=== PATIENT | female | born 1930 | race Caucasian/White ===

== ENCOUNTER 2016-11-09 06:33 | Emergency (ER) | payer OTHER, MEDICARE ==
[~2016-11-09] VITALS: Ht 152.4 cm; Wt 68.0 kg
[~2016-11-09 06:33] MED LIST: AMBIEN 5 MG TABL5 M1 PO; ATIVAN0.5 MG PO; AUGMENTIN 500-1 EACH PO; BAYER CHEWABLE81 MG PO; CITALOPRAM HBR40 MG PO; CITRATE OF MAG300 ML PO; CLARITIN10 MG PO; COMBIVENT INH; DOK PLUS TABLE1 EACH PO; ESTRADIOL 1 MG T1 M1 PO; FUROSEMIDE 20 M20 MG PO; ISOSORBIDE MONO30 M1 PO; KLOR-CON 1010 MEQ PO; LEVOTHYROXIN0.075 MG PO; NORCO 10-325 T1 EACH PO; OXYBUTYNIN 5 MG5 M2 PO; PANTOPRAZOLE SO40 M1 PO; PRINIVIL20 MG PO; PROAIR HFA8.5 GM INH; SIMVASTATIN40 MG PO; TRAVATAN Z2.5 ML OPHTHALMIC; TYLENOL325 MG PO; VITAMIN B-12500 MCG PO
[2016-11-09] MEDS ORDERED: CLARITIN10 MG PO (06:55)
[2016-11-09] MEDS ORDERED: B12INJ PO (06:56)
[2016-11-09] MEDS ORDERED: ADVAIR HFA 45MC1 AER INH (06:57)
[2016-11-09] MEDS ORDERED: CARTEOLOL HCL OPHTHALMIC (06:58)
[2016-11-09] MEDS ORDERED: COMBIVENT RESPIM4 GM IH (06:59)
[2016-11-09] MEDS ORDERED: MELATONIN1 MG PO (07:00)
[2016-11-09] MEDS ORDERED: TRUSOPT5 ML OPHTHALMIC (07:00)
[2016-11-09] MEDS ORDERED: PROAIR HFA8.5 GM INH (07:01)
[2016-11-09] MEDS ORDERED: NORCO 10-325 T1 EACH PO (07:02)
== END 2016-11-09 10:31 | disposition home or self-care (01) ==
LOC: ER 06:33
DX: S09.90XA Unspecified injury of head, initial encounter (principal); I12.9 Hypertensive chronic kidney disease with stage 1 through stage 4 chronic kidney disease, or unspecified chronic kidney disease; N18.9 Chronic kidney disease, unspecified; E78.5 Hyperlipidemia, unspecified; E03.9 Hypothyroidism, unspecified; J45.909 Unspecified asthma, uncomplicated; M19.90 Unspecified osteoarthritis, unspecified site; J44.9 Chronic obstructive pulmonary disease, unspecified; F32.9 Major depressive disorder, single episode, unspecified; Z90.710 Acquired absence of both cervix and uterus; Z91.81 History of falling; Z88.5 Allergy status to narcotic agent; W18.09XA Striking against other object with subsequent fall, initial encounter; Y93.89 Activity, other specified; Y92.89 Other specified places as the place of occurrence of the external cause; Y99.8 Other external cause status

== ENCOUNTER 2016-11-22 13:39 | Inpatient (IN) | payer OTHER, MEDICARE | END 2016-11-26 16:20 | DRG 682 | LOC: ER 13:39 → EROBS 15:49 → 3N 16:09 | DX: N17.9 Acute kidney failure, unspecified (principal); G93.40 Encephalopathy, unspecified; J44.9 Chronic obstructive pulmonary disease, unspecified; E78.5 Hyperlipidemia, unspecified; E03.9 Hypothyroidism, unspecified; H40.9 Unspecified glaucoma; N18.9 Chronic kidney disease, unspecified; M19.90 Unspecified osteoarthritis, unspecified site; F32.9 Major depressive disorder, single episode, unspecified; I12.9 Hypertensive chronic kidney disease with stage 1 through stage 4 chronic kidney disease, or unspecified chronic kidney disease; D64.9 Anemia, unspecified; G30.9 Alzheimer's disease, unspecified; F02.80 Dementia in other diseases classified elsewhere, unspecified severity, without behavioral disturbance, psychotic disturbance, mood disturbance, and anxiety; K21.9 Gastro-esophageal reflux disease without esophagitis; Z90.710 Acquired absence of both cervix and uterus; Z95.0 Presence of cardiac pacemaker; Z79.899 Other long term (current) drug therapy; Z88.6 Allergy status to analgesic agent; Z88.8 Allergy status to other drugs, medicaments and biological substances; Z91.040 Latex allergy status ==

== ENCOUNTER 2017-04-24 19:46 | Inpatient (IN) | payer OTHER, MEDICARE ==
[~2017-04-24] VITALS: Ht 157.5 cm; Wt 69.3 kg
--- NOTE | ~2017-04-24 | EKG ---
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 : 1930 Requested By: Bong Roman Order Number: [id number] MD: Olayinka Novoa Measurements Intervals [place] Rate: 120 P: -12 WI: 141 QRS: -30 QRSD: 83 T: 147 QT: 323 QTc: 457 Interpretive Statements Sinus tachycardia Inferior infarct, old Anterior infarct, old Lateral leads are also involved Compared to ECG 11/22/2016 14:06:08 Atrial-paced complex(es) or rhythm no longer present Ventricular-paced complex(es) or rhythm no longer present Myocardial infarct finding still present Electronically Signed On 04-24-2017 23:08:50 SOFTWARE ENGINEER BACKEND by Olayinka Novoa [email or web address] <ELECTRONICALLY SIGNED> By: Olayinka Novoa MD 04/24/17 2308 [id number] 46 Olayinka Novoa MD /EPI
--- NOTE | ~2017-04-24 | H ---
[facility] [place] [address] HISTORY AND PHYSICAL Name: NATY THOMASON Room #: 364-P ADM IN M.R.#: [id number] Admission: 04/24/17 Attend Phys: James Sanchez MD Discharge: Date of : 29 Report #: [id number] THIS REPORT FOR: //name// CC: James Sanchez HISTORY OF PRESENT ILLNESS: The patient is an 87-year-old female who was brought to the emergency room with increasing shortness of breath, coughing with yellow sputum production that has been going on for the last 3 days. Unfortunately, the patient's was admitted with the same symptoms 1 day before and he is on mechanical ventilation in the ICU. The patient indicated that she is not having any wheezing, she is not having any chest pain or shortness of breath. The patient is not complaining of any fever or chills. PAST MEDICAL HISTORY: Significant for chronic obstructive pulmonary disease, recurrent falls, dementia, hypertension, hyperlipidemia, hypothyroidism, glaucoma, osteoarthritis, chronic kidney disease, previous history of hysterectomy, bladder surgery, thyroid , depression, large hiatal hernia, sick sinus syndrome, status post pacemaker placement and had an ejection fraction in 2015, showing 55% to 60%. MEDICATIONS: Reviewed and reconciled. ALLERGIES: To CODEINE, LATEX, and OLANZAPINE. SOCIAL HISTORY: The patient denies any recent history of smoking, but she used to smoke when she was younger. No history of alcohol use or drug use. FAMILY HISTORY: Noncontributory. REVIEW OF SYSTEMS: Negative besides what was mentioned above. PHYSICAL EXAMINATION: VITAL SIGNS: On arrival to the hospital showed a temperature of 100.7, pulse 126, respirations 28, blood pressure 167/72, last blood pressure is 120/71. Oxygen saturation initially was 91% and now it is 96% on room air. HEAD AND NECK: Unremarkable. NECK: Supple. LUNGS: Clear to auscultation. CARDIAC: S1, S2. ABDOMEN: Benign. Bowel sounds were positive. EXTREMITIES: Without any edema. Chest x-ray showed large hiatal hernia and retrocardiac left lower lobe infiltration along with right basilar atelectasis. Influenza A and B was negative. CBC showed a white count of 14.8, hemoglobin 10.7, hematocrit 32.0, and platelet count 279. The patient's sodium was 138, potassium 3.8, chloride 102, bicarbonate 22, anion gap 14, BUN 29, creatinine 1.7, [place] [address] HISTORY AND PHYSICAL Name: NATY THOMASON Room #: 364-P [facility] IN [facility]#: [id number] Admission: 04/24/17 Attend Phys: James Sanchez MD Discharge: Date of : 29 Report #: [id number] Troponin less than 0.04. Lactic acid is 1.9. ABGs showed a pH of 7.3, pCO2 of 34, pO2 89 and this is on 6 liters of oxygen. BNP was 177. 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 ASSESSMENT AND PLAN: 1. Left lower lobe pneumonia. 2. Chronic obstructive pulmonary disease. 3. Dementia. 4. Hypertension. The patient will be admitted to the hospital with the above mentioned diagnoses. We will go ahead and resume the patient's medications. We will continue with the antibiotics and IV hydration. I will start physical therapy and occupational therapy. We will start the patient on Lovenox for deep venous thrombosis prophylaxis. I will continue to monitor the patient. <ELECTRONICALLY SIGNED> By: James Sanchez MD 04/27/17 [id number] [id number] James Sanchez MD /nt
[~2017-04-24 19:46] MED LIST changes: +ADVAIR HFA 45MC1 AER INH; +ARICEPT 5 MG TAB5 MG PO; +ASPIR 8181 MG PO; +B12INJ PO; +CARTEOLOL HCL OPHTHALMIC; +COMBIVENT RESPIM4 GM IH; +MELATONIN1 MG PO; +TRUSOPT5 ML OPHTHALMIC
[2017-04-24 19:48] VITALS: BP 167/72
[2017-04-24] MEDS ORDERED: ARICEPT 5 MG TAB5 MG PO (20:45)
[2017-04-24] MEDS ORDERED: AMLODIPINE BESY10 MG PO (20:50)
[2017-04-24] MEDS ORDERED: REQUIP0.5 MG PO (20:50)
[2017-04-24] MEDS ORDERED: LATANOPROST 0.2.5 ML OPHTHALMIC (20:52)
[2017-04-24] MEDS ORDERED: TRIAMCINOLONE A80 G2 TOP (20:53)
[2017-04-24] MEDS ORDERED: LASIX 20 MG TAB20 MG PO (20:53)
[2017-04-24] MEDS ORDERED: KLOR-CON 1010 MEQ PO (20:54)
[2017-04-24 21:02] LABS: ANION GAP 14 mmol/L (7-16); BUN 29 mg/dL (7-18); CALCIUM 8.8 mg/dL (8.5-10.1); CHLORIDE 102 mmol/L (98-107); CO2 22 mmol/L (21-32); CREATININE 1.7 mg/dL (0.6-1.0); GLUCOSE 145 mg/dL (74-106); HEMOGLOBIN 10.7 gm/dL (12.0-15.0); MCH 27.9 pg (26.0-34.0); MCHC 33.4 g/dL (28.0-37.0); MCV 83.6 fL (80.0-100.0); POTASSIUM 3.8 mmol/L (3.5-5.1); RBC 3.83 mil/uL (4.20-5.00); RDW 16.7 % (10.5-14.5); SODIUM 138 mmol/L (136-145); WBC 14.8 thou/uL (4.0-11.0)
[2017-04-24 21:11] LABS: TROPONIN-I < 0.04 ng/mL (<0.06)
[2017-04-24 21:41] LABS: HCO3 19.5 mmol/L (22.0-26.0); PO2 89.6 mmHg (80.0-100.0); pH 7.376 (7.360-7.450); sO2 96.8 % (92.0-98.0)
[2017-04-24 22:35] VITALS: BP 128/75
[2017-04-25 00:05] VITALS: BP 120/71
[2017-04-25 07:35] VITALS: BP 121/66
[2017-04-25 11:21] VITALS: BP 111/55
[2017-04-25 15:00] VITALS: BP 113/58
[2017-04-25 20:30] VITALS: BP 120/66
[2017-04-25 23:25] VITALS: BP 118/69
[2017-04-26 05:30] VITALS: BP 129/60
[2017-04-26 06:25] LABS: ABSOLUTE NEUTROPHILS 10.5 thou/uL (1.4-8.2); BASOPHILS 0.2 % (0.0-2.0); HEMATOCRIT 24.8 % (37.0-47.0); LYMPHOCYTES 9.7 % (24.0-44.0); MCH 27.7 pg (26.0-34.0); MCHC 32.9 g/dL (28.0-37.0); MCV 84.2 fL (80.0-100.0); MONOCYTES 6.4 % (1.0-8.0); PLATELET COUNT 216 thou/uL (150-400); POLYS 83.7 % (36.0-66.0); RBC 2.94 mil/uL (4.20-5.00); WBC 12.6 thou/uL (4.0-11.0)
[2017-04-26 06:30] LABS: CALCIUM 8.1 mg/dL (8.5-10.1); CREATININE 1.3 mg/dL (0.6-1.0); POTASSIUM 3.8 mmol/L (3.5-5.1)
[2017-04-26 06:41] LABS: HEMOGLOBIN 8.1 gm/dL (12.0-15.0)
[2017-04-26 08:00] VITALS: BP 137/70
[2017-04-26 13:00] VITALS: BP 131/56
[2017-04-26 16:27] VITALS: BP 129/62
[2017-04-26 19:36] VITALS: BP 130/75
[2017-04-27 03:33] VITALS: BP 137/65
[2017-04-27 06:22] LABS: HEMATOCRIT 26.5 % (37.0-47.0); HEMOGLOBIN 8.8 gm/dL (12.0-15.0); MCH 27.7 pg (26.0-34.0); MCV 84.1 fL (80.0-100.0); RBC 3.16 mil/uL (4.20-5.00); RDW 17.3 % (10.5-14.5); WBC 14.2 thou/uL (4.0-11.0)
[2017-04-27 06:36] LABS: CALCIUM 8.8 mg/dL (8.5-10.1); CREATININE 1.3 mg/dL (0.6-1.0); POTASSIUM 3.9 mmol/L (3.5-5.1)
[2017-04-27 07:52] VITALS: BP 158/91
[2017-04-27 15:43] VITALS: BP 159/116
[2017-04-27 19:30] VITALS: BP 137/98
[2017-04-28 03:20] VITALS: BP 155/73
[2017-04-28 03:39] LABS: HEMATOCRIT 28.2 % (37.0-47.0); HEMOGLOBIN 9.3 gm/dL (12.0-15.0); MCH 27.6 pg (26.0-34.0); MCV 83.9 fL (80.0-100.0); PLATELET COUNT 341 thou/uL (150-400); RBC 3.36 mil/uL (4.20-5.00); RDW 17.2 % (10.5-14.5); WBC 14.4 thou/uL (4.0-11.0)
[2017-04-28 03:53] LABS: CALCIUM 8.8 mg/dL (8.5-10.1); CREATININE 1.2 mg/dL (0.6-1.0); POTASSIUM 3.8 mmol/L (3.5-5.1)
[2017-04-28 05:11] LABS: ABSOLUTE NEUTROPHILS 12.1 thou/uL (1.4-8.2); ANISOCYTOSIS 1+
[2017-04-28 08:22] VITALS: BP 156/84
[2017-04-28 20:30] VITALS: BP 136/70
[2017-04-29 05:00] VITALS: BP 137/67
[2017-04-29] MEDS ORDERED: LEVAQUIN 250 M250 MG PO (08:18)
[2017-04-29] MEDS ORDERED: TRAZODONE HCL50 MG PO (08:19)
[2017-04-29] MEDS ORDERED: ENOXAPARIN30 MG/0.1 SUBQ (08:19)
[2017-04-29] MEDS ORDERED: DUONEB 2.5-0.5 M3 ML INH (08:19)
[2017-04-29] MEDS ORDERED: PREDNISONE 20 M20 M1 PO (08:20)
[2017-04-29 08:40] VITALS: BP 160/85
== END 2017-04-29 15:53 | DRG 871 ==
LOC: ER 19:46 → EROBS 21:40 → 3W 21:40
PROVIDERS: Emergency Medicine; Internal Medicine; Nurse Practitioner Adult Health
DX: A41.9 Sepsis, unspecified organism (principal); J18.1 Lobar pneumonia, unspecified organism; N17.9 Acute kidney failure, unspecified; J44.1 Chronic obstructive pulmonary disease with (acute) exacerbation; J44.0 Chronic obstructive pulmonary disease with (acute) lower respiratory infection; I12.0 Hypertensive chronic kidney disease with stage 5 chronic kidney disease or end stage renal disease; E78.5 Hyperlipidemia, unspecified; E03.9 Hypothyroidism, unspecified; H40.9 Unspecified glaucoma; N18.9 Chronic kidney disease, unspecified; M19.011 Primary osteoarthritis, right shoulder; R00.0 Tachycardia, unspecified; F32.9 Major depressive disorder, single episode, unspecified; F03.90 Unspecified dementia, unspecified severity, without behavioral disturbance, psychotic disturbance, mood disturbance, and anxiety; Z88.8 Allergy status to other drugs, medicaments and biological substances; Z90.710 Acquired absence of both cervix and uterus; Z88.6 Allergy status to analgesic agent; Z91.040 Latex allergy status; Z95.0 Presence of cardiac pacemaker; Z79.899 Other long term (current) drug therapy
CPT/HCPCS: 10879

== ENCOUNTER 2018-05-23 22:11 | Inpatient (IN) | payer OTHER, MEDICARE ==
[~2018-05-23] VITALS: Ht 152.4 cm; Wt 77.1 kg
[~2018-05-23 22:11] MED LIST changes: +AMLODIPINE BESY10 MG PO; -B12INJ PO; +DORZOLAMIDE 2%10 ML OPHTHALMIC; +DUONEB 2.5-0.5 M3 ML INH; +ENOXAPARIN30 MG/0.1 SUBQ; +LASIX 20 MG TAB20 MG PO; +LATANOPROST 0.2.5 ML OPHTHALMIC; +LEVAQUIN 250 M250 MG PO; +PREDNISONE 20 M20 M1 PO; +REQUIP0.5 MG PO; +TRAZODONE HCL50 MG PO; +TRIAMCINOLONE A80 G2 TOP
[2018-05-23 22:12] VITALS: BP 179/87
--- NOTE | 2018-05-23 22:21 | NUR ---
HAS SIGNED DNR ORDER
[2018-05-23 22:48] LABS: ABSOLUTE NEUTROPHILS 8.8 thou/uL (1.4-8.2); BASOPHILS 0.4 % (0.0-2.0); EOSINOPHILS 1.3 % (0.0-3.0); HEMATOCRIT 41.7 % (37.0-47.0); HEMOGLOBIN 14.2 gm/dL (12.0-15.0); LYMPHOCYTES 12.7 % (24.0-44.0); MCHC 34.1 g/dL (28.0-37.0); MCV 90.9 fL (80.0-100.0); MONOCYTES 9.5 % (1.0-8.0); PLATELET COUNT 226 thou/uL (150-400); POLYS 76.1 % (36.0-66.0); RBC 4.59 mil/uL (4.20-5.00); RDW 14.8 % (10.5-14.5); WBC 11.6 thou/uL (4.0-11.0)
--- NOTE | 2018-05-23 22:48 | NUR ---
MEDICATION LIST REQUESTED FROM PHARMACY AT 2966
[2018-05-23 22:51] LABS: ANION GAP 9 mmol/L (7-16); BUN 22 mg/dL (7-18); CHLORIDE 97 mmol/L (98-107); CO2 28 mmol/L (21-32); CREATININE 1.5 mg/dL (0.6-1.0); GLUCOSE 121 mg/dL (74-106); POTASSIUM 4.5 mmol/L (3.5-5.1); SODIUM 134 mmol/L (136-145)
[2018-05-23 22:59] LABS: ALBUMIN 4.3 g/dL (3.4-5.0); SGOT 19 U/L (15-37); SGPT 21 U/L (30-65); TROPONIN-I <0.06 ng/mL (<0.06)
[2018-05-23] MEDS ORDERED: MUCUS ER600 M1 PO (23:08)
[2018-05-23] MEDS ORDERED: SYNTHROID88 MCG PO (23:09)
[2018-05-23] MEDS ORDERED: TYLENOL EXTRA500 MG (23:10)
[2018-05-23] MEDS ORDERED: MILK OF MA2400 MG/10 PO (23:12)
[2018-05-23] MEDS ORDERED: ZOFRAN4 MG PO (23:13)
[2018-05-23] MEDS ORDERED: KLOR-CON 1010 MEQ PO (23:13)
[2018-05-23 23:15] LABS: APTT 29.4 Seconds (24.5-32.8); PROTIME 10.1 Seconds (9.3-11.4)
[2018-05-23] MEDS ORDERED: TIMOPTIC 0.25%1 EACH OPHTHALMIC (23:15)
[2018-05-23 23:21] LABS: URINE BILIRUBIN NEGATIVE (Negative); URINE BLOOD NEGATIVE (Negative); URINE CLARITY CLEAR; URINE COLOR YELLOW; URINE GLUCOSE-RANDOM* NEGATIVE (Negative); URINE KETONES NEGATIVE (Negative); URINE LEUKOCYTES-REFLEX NEGATIVE (Negative); URINE NITRITE-REFLEX NEGATIVE (Negative); URINE PROTEIN (DIPSTICK) 1+ (Negative); URINE SPECIFIC GRAVITY 1.015 (1.005-1.035); URINE UROBILINOGEN 0.2 E.U./dl (0.2-1.0)
[2018-05-23 23:33] LABS: BACTERIA-REFLEX 1-9 Few /HPF (None Seen); CASTS None Seen /LPF (None Seen); SQUAMOUS 0-3 Few /LPF (0-3); URINE RBC 0-2 Rare /HPF (0-2); URINE WBC-REFLEX 0-5 Rare /HPF (0-5)
[2018-05-23] MEDS ORDERED: TRAMADOL 50 MG50 MG PO (23:33)
[2018-05-23 23:34] LABS: CRYSTALS None Seen /LPF (None Seen)
[2018-05-23] MEDS ORDERED: TRAZODONE 150150 M1 PO (23:34)
[2018-05-24 02:19] VITALS: BP 137/70
--- NOTE | 2018-05-24 03:00 | NUR ---
Pt. was admitted to the unit from the emergency room accompanied by staff. She offers no complaints. Admission assessment and history is completed. Up to the bedside comode with one person and a gait belt. Bed alarm is on.
[2018-05-24] MEDS ORDERED: VITAMIN D3400 UNIT PO (04:17)
[2018-05-24] MEDS ORDERED: BUSPIRONE HCL10 MG PO (04:18)
[2018-05-24] MEDS ORDERED: LEXAPRO20 MG PO ×2 (04:19→04:20)
[2018-05-24] MEDS ORDERED: SEROQUEL 25 MG25 M1 PO (04:22)
[2018-05-24] MEDS ORDERED: MELATONIN3 MG PO (04:31)
[2018-05-24] MEDS ORDERED: TRAZODONE HCL50 MG PO (04:42)
[2018-05-24] MEDS ORDERED: ONDANSETRON HCL4 M2 PO (04:43)
[2018-05-24] MEDS ORDERED: MAPAP500 M1 PO (04:45)
[2018-05-24 08:15] VITALS: BP 131/80
--- NOTE | 2018-05-24 10:46 | EKG ---
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: APRIL : 1930 Requested By: Shlomo Chavira Order Number: [id number] MD: Randy Clay Measurements Intervals [place] Rate: 118 P: -17 MS: 217 QRS: -50 QRSD: 78 T: 86 QT: 329 QTc: 462 Interpretive Statements Sinus tachycardia Prolonged MS interval Inferior infarct, old Anterior infarct, old Compared to ECG 04/24/2017 20:47:21 First degree AV block now present Myocardial infarct finding still present Electronically Signed On 05-24-2018 10:46:34 SCHOOL RESOURCE OFFICER by Randy Clay [email or web address] <ELECTRONICALLY SIGNED> By: Randy Clay MD 05/24/18 1046 [id number] Randy Clay MD /[facility]
[2018-05-24] MEDS ORDERED: IPRAT-ALBUT 0.5-3 ML INH (13:31)
[2018-05-24] MEDS ORDERED: TRAMADOL 50 MG50 MG PO (13:37)
[2018-05-24 14:40] VITALS: BP 121/81
--- NOTE | 2018-05-24 16:03 | NUR ---
TOWARDS POC PT A/O X4, VSS, AFEBRILE, DENIES PAIN, ON SCHEDULED BREATHING TX. REMAINED IN ISOLATION FOR RSV. NO CONCERNS VOICED. WILL CONTINUE TO MONITOR.
[2018-05-24 20:00] VITALS: BP 139/73
[2018-05-25 04:54] VITALS: BP 143/78
--- NOTE | 2018-05-25 05:24 | NUR ---
Pt. rested quietly during the night when checked on during frequent rounds. She offers no c/o pain. Up to the bedside comode with assistance of one. Pt. gets short of air upon activity, but recovers with rest. Bed alarm is on.
[2018-05-25 05:54] LABS: ABSOLUTE NEUTROPHILS 10.5 thou/uL (1.4-8.2); BASOPHILS 0.6 % (0.0-2.0); EOSINOPHILS 0.1 % (0.0-3.0); HEMATOCRIT 34.4 % (37.0-47.0); LYMPHOCYTES 7.5 % (24.0-44.0); MCH 30.8 pg (26.0-34.0); MCV 90.6 fL (80.0-100.0); MONOCYTES 4.2 % (1.0-8.0); PLATELET COUNT 218 thou/uL (150-400); POLYS 87.6 % (36.0-66.0); RDW 14.6 % (10.5-14.5)
[2018-05-25 06:01] LABS: HEMOGLOBIN 11.7 gm/dL (12.0-15.0)
[2018-05-25 06:11] LABS: CALCIUM 9.4 mg/dL (8.5-10.1); CREATININE 1.3 mg/dL (0.6-1.0); POTASSIUM 4.2 mmol/L (3.5-5.1)
[2018-05-25 08:20] VITALS: BP 120/69
--- NOTE | 2018-05-25 10:13 | H ---
[facility] [place] [address] HISTORY AND PHYSICAL Name: NATY THOMASON Room #: 462-P [facility] IN M.R.#: [id number] Admission: 05/24/18 Attend Phys: James Sanchez MD Discharge: Date of : 29 Report #: [id number] THIS REPORT FOR: //name// CC: James Sanchez DATE OF SERVICE: 05/24/2018 HISTORY OF PRESENT ILLNESS: The patient is an 88-year-old female who was diagnosed to have respiratory syncytial viral infection when she was at the shelter facility. The patient continued to have some coughing and increasing shortness of breath, for this reason she was brought to the emergency room. The patient was found to have acute exacerbation of chronic obstructive pulmonary disease. PAST MEDICAL HISTORY: Significant for chronic obstructive pulmonary disease, recurrent falls, dementia, hypertension, hyperlipidemia, hypothyroidism, glaucoma, osteoarthritis, chronic kidney disease, previous history of hysterectomy, bladder surgery, thyroid nodule removal, depression, large hiatal hernia, sick sinus syndrome, status post pacemaker placement. The patient had left lower lobe pneumonia in 04/2017. MEDICATIONS: Reviewed. ALLERGIES: CODEINE, LATEX AND OLANZAPINE. SOCIAL HISTORY: The patient denies any recent smoking, alcohol use or drug use. FAMILY HISTORY: Noncontributory. REVIEW OF SYSTEMS: Negative besides mentioned above. PHYSICAL EXAMINATION: VITAL SIGNS: Showed a temperature of 38.6, pulse 124, respirations 24, blood pressure 179/87, oxygen saturation was 99%. HEAD AND NECK: Unremarkable. NECK: Supple. LUNGS: Clear to auscultation, but decreased breath sounds bilaterally. CARDIAC: S1, S2. ABDOMEN: Benign. Bowel sounds were positive. EXTREMITIES: Without any edema. LABORATORY DATA: The patient's chest x-ray showed retrocardiac density and lucency secondary to large hiatal hernia, improvement in basal aeration with minimal residual left basilar opacities, preferring atelectasis. The patient's 12-lead EKG showed sinus tachycardia, prolonged [place] interval and anterior infarct, both of which are old. CBC showed a white count of 11.6, hemoglobin [facility] [address] [place] [address] HISTORY AND PHYSICAL Name: NATY THOMASON Alan Room #: 462-P [facility] IN [facility].#: [id number] Admission: 05/24/18 Attend Phys: James Sanchez MD Discharge: Date of : 29 Report #: [id number] 14.2, hematocrit 41.7, platelet count 226 and neutrophils are 76%. Comprehensive metabolic panel showed sodium of 134, potassium 4.5, chloride 97, bicarbonate 28, BUN 22, creatinine 1.5, glucose 121, alkaline phosphatase 146, ALT 21, total protein 9 and GFR of 33. Troponin is less than 0.06. Lactic acid is 1.3. INR is 1.1. Urinalysis showed protein +1 and few bacteria, otherwise negative. ASSESSMENT AND PLAN: 1. Chronic obstructive pulmonary disease exacerbation. 2. Lower respiratory tract with respiratory syncytial virus. 3. Chronic kidney disease stage 3. The patient will be admitted to the hospital with the above-mentioned diagnoses. I will resume the patient's medications. I will go ahead and start the patient on Solu-Medrol in addition to continuing the bronchodilators and Mucinex. The patient to resume her medications. The patient to start physical therapy and occupational therapy. <ELECTRONICALLY SIGNED> By: James Sanchez MD 05/25/18 1013 [id number] 0811 James Sanchez MD /nt
--- NOTE | 2018-05-25 12:54 | NUR ---
TOWARDS POC PT A/O X4, VSS, AFEBRILE, STILL WITH SOA WITH ACTIVITY. REMAINED ON 2L O2. WILL CONTINUE TO MONITOR.
[2018-05-25 15:20] VITALS: BP 120/62
[2018-05-25 19:08] VITALS: BP 147/75
[2018-05-26 04:37] VITALS: BP 158/81
--- NOTE | 2018-05-26 05:38 | NUR ---
Assumed care at 1845. Pt resting in bed. Denies chest pain. Still on 2L NC. No identified needs at the moment. Will continue to monitor.
[2018-05-26] MEDS ORDERED: LEVAQUIN 500 M500 M2 PO (06:25)
[2018-05-26] MEDS ORDERED: PREDNISONE 20 M20 MG PO (06:26)
[2018-05-26 08:04] VITALS: BP 146/69
[2018-05-26 08:28] VITALS: BP 146/69
--- NOTE | 2018-05-26 14:15 | NUR ---
PATIENT TO DC TODAY BACK TO [facility], ACCORDING TO ALEJANDRA AT , PATIENT IS MEDICAID AND THEY CAN'T PROVIDE TRANSPORTATION. ALEJANDRA SENT MEDICAID NUMBER/INFO WHICH WAS GIVEN TO [facility]IR[facility]. [facility] CAN'T PICKUP THEY DON'T PROVIDE OXYGEN SO DP GOT SEBASTIAN TAPIA'S PERMISSION TO USE [facility], PICKUP TODAY 4 TO 430PM WC VAN, 2L OXYGEN, DP NOTIFIED FAMILY/SON TIFFANY AND ALSO THE UNIT.
--- NOTE | 2018-05-26 15:35 | NUR ---
PT ADMITTED RELATED TO COPD EXACERBATION. CM REVIWED CHART AND SPOKE WITH CARE TEAM. IT WS INDICATED THAT PT IS A HALFWAY CARE PATIENT AT [facility]. PT HAS ORDERS TO RETURN THERE SKILLED THIS DAY. DC MMA FIGHTER CALLED TO ARRANGE PT'S RETURN AND SHE INDICATED THAT THE STAFF STATED THAT THEY WOULD NOT ARRANGE TRANSPORT AND PT HAD MEDICAID. THEY SENT A FACE SHEET WITH THE INFO. ULTIMATLY TRANSPORT WAS ARRANGED WITH [facility] FOR [facility] VAN TRANSPORT BETWEEN [phone]. PT'S SON WAS NOTIFIED. NO OTHER CM INTERVENTION INDICATED AT THIS TIME. CASE CLOSED.
== END 2018-05-26 16:53 | DRG 202 ==
LOC: ER 22:11 → EROBS 05-24 03:07 → 4W 05-24 03:07
PROVIDERS: Emergency Medicine; ADMIT Internal Medicine
DX: J21.0 Acute bronchiolitis due to respiratory syncytial virus (principal); J44.1 Chronic obstructive pulmonary disease with (acute) exacerbation; N18.3 Chronic kidney disease, stage 3 (moderate); I12.9 Hypertensive chronic kidney disease with stage 1 through stage 4 chronic kidney disease, or unspecified chronic kidney disease; E78.5 Hyperlipidemia, unspecified; E03.9 Hypothyroidism, unspecified; H40.9 Unspecified glaucoma; M19.90 Unspecified osteoarthritis, unspecified site; F32.9 Major depressive disorder, single episode, unspecified; F03.90 Unspecified dementia, unspecified severity, without behavioral disturbance, psychotic disturbance, mood disturbance, and anxiety; Z91.81 History of falling; Z90.710 Acquired absence of both cervix and uterus; Z95.0 Presence of cardiac pacemaker; Z79.51 Long term (current) use of inhaled steroids; Z79.82 Long term (current) use of aspirin; Z79.899 Other long term (current) drug therapy; Z88.5 Allergy status to narcotic agent; Z88.8 Allergy status to other drugs, medicaments and biological substances; Z91.040 Latex allergy status
CPT/HCPCS: 10045